=== PATIENT | female | born 1990 | race Caucasian/White ===

== ENCOUNTER 2019-12-19 08:30 | Emergency (ER) | payer SELFPAY ==
[~2019-12-19] VITALS: Ht 165.1 cm; Wt 59.1 kg
[2019-12-19] MEDS ORDERED: normal saline 1000ML IV soln IVB ONE ×2 (08:50→11:55)
[2019-12-19] MEDS ORDERED: proCHLORperazine 10 MG/2 ml inj IV ONE (08:50)
[2019-12-19 09:20] LABS: BASOPHILS % (AUTO) 0.4 % (0-1); EOSINOPHILS # (AUTO) 0.1 X10'3 (0-0.9); EOSINOPHILS % (AUTO) 0.7 % (0-6); HEMATOCRIT 29.6 % (35.0-45.0); HEMOGLOBIN 9.9 g/dl (12.0-16.0); LYMPHOCYTES # (AUTO) 1.2 X10'3 (1.1-4.8); LYMPHOCYTES % (AUTO) 12.5 % (21-51); MEAN CORPUSCULAR HEMOGLOBIN 30.6 PG (27.0-31.0); MEAN CORPUSCULAR HGB CONC 33.4 g/dL (33.0-36.5); MEAN CORPUSCULAR VOLUME 91.6 FL (78-98); MONOCYTES # (AUTO) 0.5 X10'3 (0-0.9); MONOCYTES % (AUTO) 5.3 % (2-12); NEUTROPHILS # (AUTO) 7.9 X10'3 (1.8-7.7); NEUTROPHILS % (AUTO) 81.1 % (42-75); PLATELET COUNT 279 X10'3 (140-440); RED BLOOD COUNT 3.23 X10'6 (4.20-5.60); RED CELL DISTRIBUTION WIDTH 12.7 % (11.5-14.5); WHITE BLOOD COUNT 9.8 X10'3 (4.5-11.0)
[2019-12-19] MEDS: morphine 4 MG/ML inj SYRINge IV PRN ×2 (09:26→13:20)
--- NOTE | 2019-12-19 09:29 | NUR ---
Pt has urine cup and knows that we need a urine sample when she is able to obtain one.
[2019-12-19 09:43] LABS: HCG SERUM QL NEGATIVE
[2019-12-19 09:45] LABS: ALANINE AMINOTRANSFERASE 20 U/L (12-78); ALBUMIN 3.7 G/DL (3.4-5.0); ALBUMIN/GLOBULIN RATIO 1.4 (1.1-1.5); ALKALINE PHOSPHATASE 44 IU/L (46-116); ANION GAP 9 (8-16); ASPARTATE AMINO TRANSFERASE 15 U/L (10-37); BILIRUBIN,TOTAL 1.2 MG/DL (0.1-1.0); BLOOD UREA NITROGEN 12 MG/DL (7-18); BUN/CREATININE RATIO 11.2 (6.6-38.0); CALCIUM 8.1 MG/DL (8.5-10.1); CHLORIDE 100 MMOL/L (99-107); CREATININE 1.07 MG/DL (0.40-0.90); GLUCOSE 133 MG/DL (70-104); LIPASE 128 U/L (73-393); POTASSIUM 3.6 MMOL/L (3.5-5.1); SODIUM 135 MMOL/L (135-145); TOTAL CARBON DIOXIDE 25.6 MMOL/L (24-32); TOTAL PROTEIN 6.4 G/DL (6.4-8.2); eGFR 61 ML/MIN
[2019-12-19] MEDS ORDERED: iohexol 300mg/ml 100ml inj. ONE (10:00)
[2019-12-19] MEDS ORDERED: fentaNYL/PF 50MCG/1 ML 2ML syringe IV ONE (10:00)
--- NOTE | 2019-12-19 10:52 | NUR ---
information technology assistant at bedside.
[2019-12-19] MEDS ORDERED: diatr meglu/diatrizoate 30ml oral sol.-(3 dose) bottle PO SCH (11:15)
[2019-12-19 11:46] LABS: CLARITY,URINE CLOUDY (Clear); COLOR,URINE YELLOW (Yellow); GLUCOSE, URINE NEGATIVE (Neg); KETONES,URINE TRACE mg/dl (Neg); LEUKOCYTE ESTERASE ,URINE NEGATIVE (Neg); NITRITES, URINE NEGATIVE (Neg); OCCULT BLOOD,URINE NEGATIVE (Neg); PH,URINE 5.5 (4.8-8.0); PROTEIN,URINE NEGATIVE (Neg); UROBILINOGEN,URINE 0.2 E.U/dL (0.2-1.0)
[2019-12-19 11:47] LABS: UA COLLECTION TYPE STRAIGHT CATH
[2019-12-19 11:52] LABS: BASOPHILS % (AUTO) 0.2 % (0-1); EOSINOPHILS % (AUTO) 0.1 % (0-6); LYMPHOCYTES # (AUTO) 0.5 X10'3 (1.1-4.8); LYMPHOCYTES % (AUTO) 4.2 % (21-51); MEAN CORPUSCULAR HEMOGLOBIN 30.6 PG (27.0-31.0); MEAN CORPUSCULAR HGB CONC 33.3 g/dL (33.0-36.5); MEAN CORPUSCULAR VOLUME 91.9 FL (78-98); MONOCYTES # (AUTO) 0.6 X10'3 (0-0.9); NEUTROPHILS % (AUTO) 90.5 % (42-75); PLATELET COUNT 182 X10'3 (140-440); RED CELL DISTRIBUTION WIDTH 12.8 % (11.5-14.5); WHITE BLOOD COUNT 12.2 X10'3 (4.5-11.0)
[2019-12-19 11:58] LABS: HEMATOCRIT 21.1 % (35.0-45.0)
[2019-12-19 12:20] LABS: BACTERIA,URINE NONE SEEN /HPF (Neg); MUCUS STRANDS MODERATE /LPF (Neg); RBC,URINE NONE SEEN /HPF (0-2); SQUAMOUS EPITHELIAL CELL,UR MODERATE /LPF (FEW); WBC,URINE NONE SEEN /HPF (0-4)
[2019-12-19 12:48] VITALS: BP 102/57
--- NOTE | 2019-12-19 13:15 | NUR ---
Called report to MAGALIE Mccall at [facility].
[2019-12-19 13:19] VITALS: BP 107/59
--- NOTE | 2019-12-19 13:29 | NUR ---
Called pt's mother Jamee to give her an update on the pt per the pt's request as she was leaving for [facility]. Let them know to give them about 1-2 hours for the pt to get settled at [facility] and evaluated. Gave Jamee Rivera's ED number.
[2019-12-19 13:33] VITALS: BP 107/59
== END 2019-12-19 13:36 | disposition short-term general hospital (02) ==
LOC: ER 08:30
DX: R58 Hemorrhage, not elsewhere classified (principal); R10.31 Right lower quadrant pain; R11.2 Nausea with vomiting, unspecified; R55 Syncope and collapse; Z88.2 Allergy status to sulfonamides
CPT/HCPCS: 36415; 36430; 74177; 76856; 80053; 81001; 83690; 84703; 85025; 86885; 86900; 86901; 86920; 93005; 96361; 96374; 96375; 96376; 99291; J0780; J2270; J3010; J7030; P9016; Q9967